=== PATIENT | male | born 1955 | race Caucasian/White ===

== ENCOUNTER → 2017-12-05 | Outpatient (CLI) | payer BC ==
[~2017-12-05] MED LIST: DIATRIZOATE MEGL/DIATRIZOA SOD 30 ML BTL PO ONE
[2017-12-05 14:52] LABS: BLOOD UREA NITROGEN 31 mg/dL (7-26); BUN/CREATININE RATIO 31 (6-25); CREATININE, SERUM 1.01 mg/dL (0.72-1.25); EST GLOMERULAR FILTRATION RATE > 60 ML/MIN (60-)
--- NOTE | 2017-12-05 16:32 | Diagnostic Imaging Report ---
EXAM: CT Pelvis WITH contrast INDICATION: \[id number] \[id number] \S\ABSCESS, PERIANAL COMPARISON: None. TECHNIQUE: Pelvis were scanned utilizing a multidetector helical scanner from the iliac crest to the pubic symphysis after administration of IV contrast. Coronal and sagittal reformations were obtained. Routine protocol was performed. Scan was performed when during portal venous phase. IV CONTRAST: 100 mL of Isovue-370 ORAL CONTRAST: Gastroview COMPLICATIONS: None RADIATION DOSE: Total DLP: 481.0 mGy*cm Estimated effective dose: (DLP x 0.015 x size factor) mSv CTDIvol has been reviewed. It is below the limits set by the Radiation Protocol Committee (RPC). FINDINGS: LINES and TUBES: None. GI TRACT: Visualized bowel loops are unremarkable. No evidence of bowel obstruction. The appendix is surgically absent. PELVIC ORGANS/BLADDER: Unremarkable. LYMPH NODES: No lymphadenopathy. VESSELS: Unremarkable. PERITONEUM / RETROPERITONEUM: No free air or fluid. BONES: Unremarkable. Lower lumbar spine degenerative changes. There are also mild degenerative changes of the hip joints. SOFT TISSUES: Unremarkable. IMPRESSION: 1. Unremarkable pelvic CT. 2. No perianal abscess visualized. Signed by: Dr. Maik Ruth MD on 12/05/2017 4:28 PM
== END ==
LOC: CT 13:57
PROVIDERS: ATTEND Internal Medicine Gastroenterology
DX: R16.0 Hepatomegaly, not elsewhere classified (principal); K61.0 Anal abscess
CPT/HCPCS: 36415; 72193; 82565; 84520

== ENCOUNTER → 2017-12-09 | Outpatient (CLI) | payer BC ==
--- NOTE | 2017-12-09 09:15 | Diagnostic Imaging Report ---
PROCEDURE:US LIVER COMPARISON:None. INDICATIONS:ENLARGED LIVER TECHNIQUE: Benton-scale and color doppler transverse and longitudinal images of the right upper quadrant of the abdomen were obtained. FINDINGS: Liver: 17.1 cm in length and the right midclavicular line. Normal parenchymal echogenicity. No focal mass. Main portal vein: 1 cm in caliber. Hepatopedal flow. Gallbladder: Non-shadowing echogenic focus projects into the lumen from the gallbladder wall and measures 0.9 x 0.6 x 0.8 cm. No shadowing calculus, wall thickening, or pericholecystic fluid. Common Bile Duct: 0.5 cm in caliber. Sonographic Novak's sign: Reported as negative. Right kidney: 12.2 cm in length. Normal renal cortical echogenicity. No solid masses or hydronephrosis. Pancreas: The visualized portions are unremarkable. Inferior vena cava: Patent Aorta: Non-aneurysmal Ascites: None in the right upper quadrant of the abdomen. CONCLUSION: Mild hepatomegaly without focal mass. Suspected gallbladder polyp measuring 0.9 cm in maximum caliber. Followup right upper quadrant ultrasound is suggested in 6 months to assess for stability. Alternatively, surgical consultation may be considered. Dictated by: Carroll Sanches M.D. on 12/09/2017 at 9:20 Electronically approved by: Carroll Sanches M.D. on 12/09/2017 at 9:20
== END ==
LOC: US 07:56
PROVIDERS: ATTEND Internal Medicine Gastroenterology
DX: R16.0 Hepatomegaly, not elsewhere classified (principal)
CPT/HCPCS: 76705